=== PATIENT | male | born 1990 | race Hispanic/Latino ===

== ENCOUNTER 2019-12-19 20:19 | Emergency (ER) | payer SELFPAY ==
[2019-12-19] MEDS ORDERED: LIDOCAINE 1% MPF 5 ML VIAL ONE (20:52)
--- NOTE | 2019-12-19 21:19 | ER ---
Nurse's Notes [facility] Name: Josh Greer Age: 29 yrs Sex: Male : 1990 Arrival Date: 12/19/2019 Time: 20:20 Bed 13 Private MD: Diagnosis: Right Middle Finger Paronychia Presentation: 12/18 20:33 Chief complaint: Patient states: "I bight at my nails and for 3 days now I noticed my jd3 middle finger on my right hand start to swell at the tip of it. it doesn't hurt to much, but my family was telling me I could potentially loose my finger if I didn't get it taken care of.". Coronavirus screen: Proceed with normal triage. Ebola Screen: Patient negative for fever greater than or equal to 101.5 degrees Fahrenheit, and additional compatible Ebola Virus Disease symptoms. Initial Sepsis Screen: Does the patient meet any 2 criteria? No. Patient's initial sepsis screen is negative. Does the patient have a suspected source of infection? No. Patient's initial sepsis screen is negative. Risk Assessment: Do you want to hurt yourself or someone else? Patient reports no desire to harm self or others. Onset of symptoms was December 16, 2019. 20:33 Method Of Arrival: Ambulatory jd3 20:33 Acuity: CHAU 3 jd3 Historical: - Allergies: 20:37 No Known Allergies; jd3 - Home Meds: 20:37 None [Active]; jd3 - PMHx: 20:37 None; jd3 - PSHx: 20:37 plate in left arm; left femur taken out; jd3 - Immunization history:: Adult Immunizations up to date. - Social history:: Smoking status: Patient denies any tobacco usage or history of. Screenin:38 Abuse screen: Denies threats or abuse. Nutritional screening: No deficits noted. jd3 Tuberculosis screening: No symptoms or risk factors identified. Fall Risk Ambulatory Aid- None/Bed Rest/Nurse Assist (0 pts). Gait- Normal/Bed Rest/Wheelchair (0 pts) Mental Status- Oriented to own ability (0 pts). Total Gutierrez Fall Scale indicates No Risk (0-24 pts). Assessment: 20:35 General: Appears in no apparent distress. comfortable, Behavior is calm, cooperative, jd3 appropriate for age. Pain: Complains of pain in dorsal aspect of distal phalanx of right middle finger Quality of pain is described as aching. Neuro: Level of Consciousness is awake, alert, obeys commands, Oriented to person, place, time, situation. Cardiovascular: Denies chest pain, Capillary refill < 3 seconds Patient's skin is warm and dry. Respiratory: Airway is patent Respiratory effort is even, unlabored, Respiratory pattern is regular, symmetrical, Denies cough, shortness of breath. GI: No signs and/or symptoms were reported involving the gastrointestinal system. : No signs and/or symptoms were reported regarding the genitourinary system. EENT: No signs and/or symptoms were reported regarding the EENT system. Derm: Skin is intact, Skin is dry, Skin is normal, Skin temperature is warm. Musculoskeletal: Circulation, motion, and sensation intact. Range of motion: intact in all extremities, Swelling present in dorsal aspect of proximal phalanx of right middle finger. 21:20 Reassessment: Patient appears in no apparent distress at this time. Patient and/or jd3 family updated on plan of care and expected duration. Pain level reassessed. Patient is alert, oriented x 3, equal unlabored respirations, skin warm/dry/pink. Vital Signs: 20:37 BP 138 / 98; Pulse 76; Resp 17 S; Temp 98.1(O); Pulse Ox 99% on R/A; Weight 61.23 kg jd3 (R); Height 5 ft. 5 in. (165.10 cm) (R); Pain 1/10; 21:20 BP 133 / 96; Pulse 74; Resp 16 S; Pulse Ox 98% on R/A; jd3 20:37 Body Mass Index 22.46 (61.23 kg, 165.10 cm) jd3 ED Course: 20:20 Patient arrived in ED. cf2 20:27 Jerald Gongora MD is Attending Physician. mh7 20:33 Irving Loya RN is Primary Nurse. jd3 20:36 Triage completed. jd3 20:38 Arm band placed on. jd3 20:38 Patient has correct armband on for positive identification. Bed in low position. Call [facility] light in reach. Side rails up X 1. Pulse ox on. NIBP on. 21:18 Assist provider with I \\T\\ D: of an abscess on right right hand, tip; of the middle jd3 finger Set up I\\T\\D tray. Performed by Jerald Gongora MD Dressing with 4X4s, Patient tolerated well. Patient did not have IV access during this emergency room visit. Administered Medications: 20:53 Drug: Lidocaine (1 %) 1 vials Volume: 5 ml; Route: Infiltration; jd3 21:26 Follow up: Response: No adverse reaction jd3 Outcome: 21:19 Discharge ordered by . [facility] 21:20 Condition: stable jd3 21:26 Discharged to home ambulatory. jd3 21:26 Discharge instructions given to patient, Instructed on discharge instructions, follow up and referral plans. medication usage, Demonstrated understanding of instructions, follow-up care, medications, Prescriptions given X 1. 21:26 Patient left the ED. jd3 Signatures: Irving Loya, RN RN jd3 Loulou Chan cf2 Jerald Gongora MD MD 7 Corrections: (The following items were deleted from the chart) 20:38 20:33 Acuity: CHAU 4 jd3 jd3
--- NOTE | 2019-12-19 21:20 | EDPHYS ---
Physician Documentation [facility] Name: Josh Greer Age: 29 yrs Sex: Male : 1990 Arrival Date: 12/19/2019 Time: 20:20 Bed 13 Private MD: ED Physician Jerald Gongora HPI: 12/18 20:39 This 29 yrs old Male presents to ER via Ambulatory with complaints of Finger mh7 Pain. 20:39 The patient or guardian reports pain, swelling. The complaints affect the right middle mh7 finger. Context: The problem was sustained at an unknown location, resulted from biting nails. 20:40 Onset: The symptoms/episode began/occurred 3 day(s) ago. Modifying factors: The mh7 symptoms are alleviated by nothing, the symptoms are aggravated by nothing. Associated signs and symptoms: Pertinent negatives: cyanosis distally, decreased sensation distally, fever, nausea, numbness distally, tingling distally, vomiting. Severity of symptoms: At their worst the symptoms were mild, earlier today, in the emergency department the symptoms are unchanged. Historical: - Allergies: 20:37 No Known Allergies; jd3 - Home Meds: 20:37 None [Active]; jd3 - PMHx: 20:37 None; jd3 - PSHx: 20:37 plate in left arm; left femur taken out; jd3 - Immunization history:: Adult Immunizations up to date. - Social history:: Smoking status: Patient denies any tobacco usage or history of. ROS: 20:40 Constitutional: Negative for fever, chills, and weight loss, Eyes: Negative for injury, mh7 pain, redness, and discharge, ENT: Negative for injury, pain, and discharge, Neck: Negative for injury, pain, and swelling, Cardiovascular: Negative for chest pain, palpitations, and edema, Respiratory: Negative for shortness of breath, cough, wheezing, and pleuritic chest pain, Abdomen/GI: Negative for abdominal pain, nausea, vomiting, diarrhea, and constipation, Back: Negative for injury and pain, : Negative for injury, bleeding, discharge, and swelling, Skin: Negative for injury, rash, and discoloration, Neuro: Negative for headache, weakness, numbness, tingling, and seizure, Psych: Negative for depression, anxiety, suicide ideation, homicidal ideation, and hallucinations, Allergy/Immunology: Negative for hives, rash, and allergies, Endocrine: Negative for neck swelling, polydipsia, polyuria, polyphagia, and marked weight changes, Hematologic/Lymphatic: Negative for swollen nodes, abnormal bleeding, and unusual bruising. Exam: 20:40 Constitutional: This is a well developed, well nourished patient who is awake, alert, mh7 and in no acute distress. Head/Face: Normocephalic, atraumatic. Neck: Trachea midline, no thyromegaly or masses palpated, and no cervical lymphadenopathy. Supple, full range of motion without nuchal rigidity, or vertebral point tenderness. No Meningismus. Chest/axilla: Normal chest wall appearance and motion. Nontender with no deformity. No lesions are appreciated. Cardiovascular: Regular rate and rhythm with a normal S1 and S2. No gallops, murmurs, or rubs. Normal PMI, no JVD. No pulse deficits. Respiratory: Lungs have equal breath sounds bilaterally, clear to auscultation and percussion. No rales, rhonchi or wheezes noted. No increased work of breathing, no retractions or nasal flaring. Abdomen/GI: Soft, non-tender, with normal bowel sounds. No distension or tympany. No guarding or rebound. No evidence of tenderness throughout. Back: No spinal tenderness. No costovertebral tenderness. Full range of motion. Skin: Warm, dry with normal turgor. Normal color with no rashes, no lesions, and no evidence of cellulitis. 20:40 Neuro: Awake and alert, GCS 15, oriented to person, place, time, and situation. Cranial nerves II-XII grossly intact. Motor strength 5/5 in all extremities. Sensory grossly intact. Cerebellar exam normal. Normal gait. Psych: Awake, alert, with orientation to person, place and time. Behavior, mood, and affect are within normal limits. 20:40 Musculoskeletal/extremity: Extremities: noted in the right middle finger tip nail fold: erythema, swelling, tenderness, ROM: intact in all extremities, Circulation is intact in all extremities. Pulses: are normal with no appreciated deficits, Perfusion: the patient is normally perfused throughout, Perfusion: the extremity is normally perfused throughout, Sensation intact. Compartment Syndrome exam of affected extremity: is normal. no numbness, no tingling, no sensation deficit, no palor, no weak pulses, Joints: All joints appear normal with full range of motion. Vital Signs: 20:37 BP 138 / 98; Pulse 76; Resp 17 S; Temp 98.1(O); Pulse Ox 99% on R/A; Weight 61.23 kg jd3 (R); Height 5 ft. 5 in. (165.10 cm) (R); Pain 1/10; 21:20 BP 133 / 96; Pulse 74; Resp 16 S; Pulse Ox 98% on R/A; jd3 20:37 Body Mass Index 22.46 (61.23 kg, 165.10 cm) jd3 Procedures: 21:15 I \T\ D: Incision and drainage was performed for an abscess of the right middle finger mh7 paronychia Prepped with Betadine, Anesthetized with 4 ml's 1% Lidocaine. Incised with #11 blade. Drained small amount purulent fluid. Dressing: sterile 4x4 gauze, the patient tolerated the procedure well. Nerve block: (digital) of dorsal aspect of proximal phalanx of right middle finger Medication: Lidocaine 1% without epinephrine Amount: 4 mls were injected, Effect: the patient's symptoms are improved, markedly, Set up for procedure. Performed by Jerald Gongora MD Patient tolerated well. MDM: 20:39 Patient medically screened. [facility] 21:15 Differential diagnosis: abrasion, cellulitis, paronychial, felon. Data reviewed: [facility] signs, nurses notes. Data interpreted: Pulse oximetry: on room air is 99 %. Interpretation: normal. Counseling: I had a detailed discussion with the patient and/or guardian regarding: the historical points, exam findings, and any diagnostic results supporting the discharge/admit diagnosis, the need for outpatient follow up, to return to the emergency department if symptoms worsen or persist or if there are any questions or concerns that arise at home. Response to treatment: the patient's symptoms have markedly improved after treatment. 12/18 20:55 Order name: I\T\D Setup; Complete Time: 20:56 j Administered Medications: 20:53 Drug: Lidocaine (1 %) 1 vials Volume: 5 ml; Route: Infiltration; jd3 21:26 Follow up: Response: No adverse reaction j Disposition: 12/19/19 21:19 Discharged to Home. Impression: Right Middle Finger Paronychia. - Condition is Stable. - Discharge Instructions: Paronychia, [id number]. - Prescriptions for Bactrim DS 800- 160 mg Oral Tablet - take 1 tablet by ORAL route every 12 hours for 7 days; 14 tablet. - Medication Reconciliation Form, Thank You Letter, Antibiotic Education, Prescription Opioid Use form. - Follow up: Private Physician; When: 48 Hours; Reason: Worsening of condition, Recheck today's complaints, Re-evaluation by your physician. - Problem is new. - Symptoms have improved. Signatures: Irving Loya RN RN jd3 Jerald Gongora MD MD mh7 Corrections: (The following items were deleted from the chart) 21:26 21:19 12/19/2019 21:19 Discharged to Home. Impression: Right Middle Finger Paronychia. jd3 Condition is Stable. Forms are Medication Reconciliation Form, Thank You Letter, Antibiotic Education, Prescription Opioid Use. Follow up: Private Physician; When: 48 Hours; Reason: Worsening of condition, Recheck today's complaints, Re-evaluation by your physician. Problem is new. Symptoms have improved. mh7
[2019-12-20 08:40] VITALS: TEMP 98.1
[2019-12-20 08:42] VITALS: BP 133/96; O2SAT 98
== END 2019-12-19 21:26 | disposition home or self-care (01) ==
LOC: ER 20:19
PROC: 0H9FXZZ Drainage of Right Hand Skin, External Approach (ICD-10-PCS; principal; 2019-12-19)
DX: L03.011 Cellulitis of right finger (principal)
CPT/HCPCS: 64450; 99284

== ENCOUNTER 2024-05-15 12:36 | Emergency (ER) | payer SELFPAY ==
--- OUTSIDE RECORDS SUMMARY | 2024-05-15 12:38 | XMS REPORT | Continuity of Care Document ---
Author Name Unknown Address [address] [place] [address] [address] [place] [address] [facility] Address [address] [place] [address] [address] [place] [address] Care Team Providers Care Digital Design Engineer Name Role Phone PCP, PATIENT DOES NOT HAVE A Primary Care Physic MIGDALIA Copeland Attending Clinician Unavailable Doctor Unassigned, [place] Attending Clinician U navailADRIAN Padilla Attending Clinician Regina vailable Adrian Mojica DNP Attending Clinician Payers Payer Name Policy Type Policy Number Effective Date Expirati on Date Source [facility] [id number] 2021 00:00:00 Allergies, Adverse Reactions, Alerts Allergy Name Allergy Type Status Severity Reaction(s) Onset Date Inactive Date Treating Clinician Comments Source NO KNOWN ALLERGIE S Drug Class Active [facility] Social History Social Habit Start Date Stop Date Quantity Comments Source Sex Assigned At 1990 00:00:00 1990 00:00:00 [facility] Smoking Status Start Date Stop Date Source Tobacco smoking consumption unknown [facility] Medications Ordered Medication Name Filled Medication Name Start Date Stop Date Current Medication? Ordering Clinician Indication Dosage Frequency Signature (SIG) Comments Components Source methylPREDN ISolone acetate (DEPO-MEDRO L) 80 mg/mL 80 mg, lidocaine 1% (PF) (XYLOCAINE) 6 mL, bupivacaine (preserv free) 0.5% (SENSORCAIN E MPF) 0.5 % (5 mg/mL) 3 mL 10 mL injection 08-19 16:45: 00 08-19 18:07 :00 No [id number] 9109 80mg [facility] methylPREDN ISolone acetate (DEPO-MEDRO L) 80 mg/mL 80 mg, lidocaine 1% (PF) (XYLOCAINE) 6 mL, bupivacaine (preserv free) 0.5% (SENSORCAIN E MPF) 0.5 % (5 mg/mL) 3 mL 10 mL injection 08-19 16:45: 00 08-19 18:07 :00 No [id number] 9109 80mg Intra-sia cular, ONCE, 1 dose, On Thu08/19/22 at 1145, 10 mL [facility] methocarbam oL 750 mg tablet 08-19 00:00: 00 11-18 04:59 :00 No [id number] 9109 750mg Take 1 tablet by mouth every evening for 90 days. [facility] meloxicam 15 mg tablet 08-19 00:00: 00 10-19 04:59 :00 No [id number] 9109 15mg Take 1 tablet by mouth in the morning for 60 days. [facility] ondansetron (ZOFRAN, HYDROCHLORI DE,) 4 mg tablet 12-04 00:00: 00 Yes 4mg Take 1 tablet by mouth every 8 (eight) hours. [facility] Vital Signs Vital Name Observation Time Observation Value Comments S ource Systolic blood pressure 2022-08-19 15:57:00 155 mm[Hg] [facility] Diastolic blood pressure 2022-08-19 15:57:00 99 mm[Hg] [facility] Heart rate 2022-08-19 15:57:00 73 /min [facility] Body temperature 2022-08-19 15:57:00 36.61 Constance [facility] Body height 2022-08-19 15:57:00 165.1 cm [facility] Body weight 2022-08-19 15:57:00 97.932 kg [facility] BMI 2022-08-19 15:57:00 35.93 kg/m2 [facility] Procedures Procedure Date / Time Performed Performing Clinician Source AUTHORIZATION FOR RELEASE OF PHI 2022-09-03 05:01:00 Doctor Unassigned, [place] [facility] XR FOREARM 2 VW LEFT 2022-08-19 16:24:00 Adiran Johnson [facility] XR KNEE 4+ VW LEFT 2022-08-19 16:24:00 Adrian Larios [facility] XR HIPS 2 VW LEFT 2022-08-19 16:23:49 Adrian Ponce [facility] Encounters Start Date/Time End Date/Time Encounter Type Admission Type Attending Clinicians Care Facility Care Department Encounter ID Source 2022-11-06 13:40:00 2022-11-06 13:40:00 Outpatient MIGDALIA MANN [facility] [id number] [facility] 2022-10-09 10:40:00 2022-10-09 10:40:00 Outpatient MIGDALIA MANN [facility] [id number] [facility] 2022-09-03 00:00:00 2022-09-03 00:00:00 Orders Only Doctor Unassigned, [place] [facility] [id number] [id number] [id number] [id number] [facility] 2022-08-19 11:13:39 2022-08-19 23:59:00 Outpatient R ADRIAN SALTER [facility] [id number] [facility] 2022-08-19 11:13:39 2022-08-19 23:59:00 Hospital Encounter Adrian Salter [facility] 1..840.114 350.1.13.10 4.2.7.2.686 [id number] [facility] 2022-08-19 10:40:00 2022-08-19 11:44:11 Office Visit Adrian Salter [facility] [id number] [id number] [id number] [id number] [facility] 2022-08-19 11:00:24 2022-08-19 11:12:00 Hospital Encounter [facility] [id number] 350.1.13.10 4.2.7.2.686 [id number] [facility] 2022-08-19 11:00:00 2022-08-19 11:00:00 Hospital Encounter [facility] [id number] 350.1.13.10 [id number] [id number] [facility] 2022-06-26 09:20:00 2022-06-26 09:20:00 Outpatient R [facility] [id number] [facility] 2022-04-04 16:18:12 2022-04-04 16:18:12 Outpatient [facility] [id number] Garo Miller
[2024-05-15] MEDS ORDERED: ONDANSETRON 4 MG/2 ML VIAL ONE ×2 (13:03→14:16)
[2024-05-15 13:07] LABS: Absolute Monocytes 0.5 K/uL (0.1-1.3); Basophils % 0.3 % (0-1.3); Eosinophils % 0.1 % (0-4.4); Hematocrit 48.4 % (39.6-49.0); Hemoglobin 16.9 g/dL (13.6-17.9); Lymphocytes % 6.6 % (15.3-44.8); MCH 30.9 pg (27.0-35.0); MCHC 34.8 g/dL (32.0-36.0); MCV 88.7 fL (80-100); MPV 8.1 fL (7.6-11.3); Monocytes % 3.1 % (3.3-12.3); Neutrophils % 89.9 % (41.7-73.7); Nucleated Red Blood Cells % 0.2 % (0-0); Platelets 275 thou/uL (152-406); RBC Red Blood Cell Count 5.46 M/uL (4.33-5.43); Red Cell Distribution Width 13.1 % (12.1-15.2)
[2024-05-15 13:20] LABS: Albumin 4.3 g/dL (3.4-5.0); Anion Gap 7.5 mEq/L (5.0-15.0); Bilirubin Total 1.3 mg/dL (0.2-1.0); Globulin 4.3 g/dL (2.3-3.5); Potassium 3.5 mEq/L (3.5-5.1); Protein, Total 8.6 g/dL (6.4-8.2)
[2024-05-15] MEDS ORDERED: METOCLOPRAMIDE 10 MG/2mL INJ ONE (13:21)
[2024-05-15] MEDS ORDERED: NA CHLORIDE 0.9% 100 ML ONE (13:21)
[2024-05-15 13:48] LABS: SARS-CoV-2 Antigen CONTROL BLUE LINE VIS/BG OK; SARS-CoV-2 Antigen Rapid Res Negative (Negative)
[2024-05-15 14:08] LABS: Troponin High Sensitivity 4.3 pg/mL (<58.9)
[2024-05-15] MEDS ORDERED: HALOPERIDOL LACT 5 MG/ML INJ ONE (14:16)
[2024-05-15] MEDS ORDERED: MORPHINE 4 MG/ML SYR ONE (14:16)
[2024-05-15] MEDS ORDERED: NA CHLORIDE 0.9% 1,000 ML ONE (14:17)
--- NOTE | 2024-05-15 14:40 | RAD REPORT ---
EXAMINATION: CT ABDOMEN AND PELVIS WITH CONTRAST CLINICAL INDICATION: Abdominal pain TECHNIQUE: CT abdomen and pelvis was performed, after the administration of 100 cc Isovue-300.. Sagit jose and coronal reconstructions were obtained. One or more of the following dose reduction techniques were used: Automated exposure control, adjustment of the mA and kV according to patient si ze, and iterative reconstruction. Unless otherwise specified, incidental findings do not require dedicated imaging follow-up. [id number]. Oral contrast was not given which limits evaluation of bowel and appendix. COMPARISON: .None FINDINGS: Liver, spleen, pancreas, adrenals and kidneys appear unremarkable No evidence of diverticulitis. Normal appendix. Small to moderate left inguinal hernia contains fat. Small umbilical hernia. Postsurgical changes left femur 1.8 cm calcification musculature anterior compartment left hip likely benign. Mild thickening of the wall of the distal esophagus : IMPRESSION: Mild thickening wall distal esophagus can be secondary to incomplete distention or inflammation
[2024-05-15] MEDS ORDERED: PROMETHAZINE INJ 25 MG/ML AMP ONE (15:25)
--- NOTE | 2024-05-15 15:52 | EDPHYS ---
Physician Documentation [facility] Name: Josh Greer Age: 34 yrs Sex: Male : 1990 Arrival Date: 05/15/2024 Time: 12:36 Bed 7 Private MD: ED Physician Adonis Baker HPI: 05/15 18:02 This 34 yrs old Male presents to ER via Ambulatory with complaints of dr5 Abdominal Pain, Nausea, Vomiting. 18:02 Patient is a 34-year-old male with history of hypertension coming in with excessive dr5 nausea and vomiting that is only relieved by hot showers at home. Patient reports he is a daily marijuana smoker. Patient denies rectal bleeding, diarrhea, chest pain, shortness of breath.. Historical: - Allergies: 12:45 No Known Allergies; cm10 - Home Meds: 12:45 None [Active]; cm10 - PMHx: 12:46 Hypertensive disorder; cm10 - Immunization history:: Adult Immunizations up to date. - Infectious Disease History:: Denies. - Social history:: Smoking status: Patient denies any tobacco usage or history of. ROS: 18:02 Constitutional: as per hpi dr5 Exam: 18:02 Constitutional: This is a well developed, well nourished patient who is awake, alert, dr5 and in no acute distress. Head/Face: Normocephalic, atraumatic. Eyes: Pupils equal round and reactive to light, extra-ocular motions intact. Lids and lashes normal. Conjunctiva and sclera are non-icteric and not injected. Cornea within normal limits. Periorbital areas with no swelling, redness, or edema. ENT: Nares patent. No nasal discharge, no septal abnormalities noted. Tympanic membranes are normal and external auditory canals are clear. Oropharynx with no redness, swelling, or masses, exudates, or evidence of obstruction, uvula midline. Mucous membranes moist. Cardiovascular: Regular rate and rhythm with a normal S1 and S2. Normal PMI, no JVD. No pulse deficits. Respiratory: Lungs have equal breath sounds bilaterally, clear to auscultation. No rales, rhonchi or wheezes noted. No increased work of breathing, no retractions or nasal flaring. Abdomen/GI: Soft, non-tender, non-distended Skin: Warm, dry with normal turgor. Normal color with no rashes, no lesions, and no evidence of cellulitis. Neuro: Awake and alert, GCS 15, oriented to person, place, time, and situation. Cranial nerves II-XII grossly intact. Motor strength 5/5 in all extremities. Sensory grossly intact. Cerebellar exam normal. Normal gait. Vital Signs: 12:44 BP 161 / 109; Pulse 78; Resp 15; Temp 98(O); Pulse Ox 98% on R/A; Weight 83.91 kg; cm10 Height 5 ft. 5 in. ; Pain 10/10; 15:15 BP 150 / 87; Pulse 78; Resp 15; Pulse Ox 98% ; jl7 12:44 Body Mass Index 30.79 (83.91 kg, 165.1 cm) cm10 12:44 Pain Scale: Adult cm10 MDM: 14:00 Medical Screening Exam initiated dr5 18:02 Differential diagnosis: Cannabinoid hyperemesis, electrolyte abnormality, influenza. dr5 Data reviewed: vital signs, nurses notes, lab test result(s). I considered the following discharge prescriptions or medication management in the emergency department Medications were administered in the Emergency Department. See MAR. Care significantly affected by the following chronic conditions: Hypertension. Care significantly affected by the following Social Determinants of Health: Poor access to healthcare and/or lack of insurance, Poor access to transportation, Problems related to employment. Counseling: I had a detailed discussion with the patient and/or guardian regarding the historical points, exam findings, and any diagnostic results supporting the discharge/admit diagnosis, the presence of at least one elevated blood pressure reading (>120/80) during this emergency department visit, lab results, radiology results, the need for outpatient follow up, for definitive care, a family practitioner, to return to the emergency department if symptoms worsen or persist or if there are any questions or concerns that arise at home. Medication response: Haldol, Phenergan, Zofran. Response to treatment: the patient's symptoms have resolved after treatment. ED course: Patient tolerated p.o. after medications. Patient is feeling much better. Will send patient home with Zofran. Recommended hot showers as needed. Recommended to take a break from smoking marijuana every day to help control cannabinoid hyperemesis syndrome. All questions answered labs reviewed with patient and CT scan.. 05/15 12:47 Order name: CBC with Diff cm10 05/15 12:47 Order name: CMP; Complete Time: 14:10 cm10 05/15 12:47 Order name: Lipase; Complete Time: 14:10 cm10 05/15 13:11 Order name: SARS RAPID; Complete Time: 14:00 jl7 05/15 13:11 Order name: Flu; Complete Time: 14:00 jl7 05/15 13:15 Order name: CBC Smear Scan EDMS 05/15 13:46 Order name: Troponin High Sensitivity; Complete Time: 14:10 EDMS 05/15 13:02 Order name: CT Abd/Pelvis - IV Contrast Only; Complete Time: 14:42 bp 05/15 14:03 Order name: EKG; Complete Time: 14:03 dr5 05/15 12:47 Order name: IV Saline Lock; Complete Time: 12:58 cm10 05/15 12:47 Order name: Labs collected and sent; Complete Time: 12:58 cm10 05/15 14:03 Order name: EKG - Nurse/Tech; Complete Time: 14:19 dr5 EC:18 Rate is 73 beats/min. Rhythm is regular. QRS [place] is Normal. MD interval is normal at dr5 136 msec. QRS interval is normal at 82 msec. QT interval is normal at 386 msec. Administered Medications: 13:06 Drug: Ondansetron IVP 4 mg IVP once; over 2 minutes Route: IVP; Site: right antecubital;jl7 13:20 Follow up: Response: No adverse reaction; Nausea unchanged jl7 13:33 Drug: metoCLOPramide IVP 20 mg IVP once; over 15 mins Route: IVP; Site: right jl7 antecubital; 14:00 Follow up: Response: No adverse reaction; Nausea unchanged jl7 14:03 CANCELLED (Patient Refused): haloperidol1 mg IVP once dr5 14:10 Not Given (Do not have in department.): droperidol0.625 mg IVP once dr5 14:20 Drug: morphine IVP or IV 4 mg IVP once over 4 mins Route: IVP; Infused Over: 4 mins; bp Site: right antecubital; 14:40 Follow up: Response: No adverse reaction; Pain is decreased jl7 14:20 Drug: NS 0.9% IV 1000 ml IV at 1000 ml once; to be given as a bolus over 60 minutes bp Route: IV; Rate: 1000 ml; Site: right antecubital; 15:00 Follow up: Response: No adverse reaction; IV Status: Completed infusion; IV Intake: jl7 1000ml 14:20 Drug: Haloperidol IVP 1 mg IVP once Route: IVP; Site: right antecubital; bp 14:30 Follow up: Response: No adverse reaction; Marked relief of symptoms jl7 14:21 Drug: Ondansetron IVP 4 mg IVP once; over 2 minutes Route: IVP; Site: right antecubital;bp 14:30 Follow up: Response: No adverse reaction; Nausea unchanged jl7 15:28 Drug: Promethazine IVP 12.5 mg IVP once Route: IVP; Site: right antecubital; jl7 15:59 Follow up: Response: No adverse reaction; Marked relief of symptoms jl7 Disposition Summary: 05/15/24 15:52 Discharge Ordered Notes: Location: Home dr5 Condition: Stable dr5 Diagnosis - Cannabinosis dr5 Followup: dr5 - With: Emergency Department - When: As needed - Reason: Worsening of condition Followup: dr5 - With: Private Physician - When: 1 - 2 days - Reason: Recheck today's complaints, Continuance of care, Re-evaluation by your physician Discharge Instructions: - Discharge Summary Sheet dr5 - Preventing Marijuana Misuse dr5 Forms: - Medication Reconciliation Form dr5 - Antibiotic Education dr5 - Prescription Opioid Use dr5 - Patient Portal Instructions dr5 - Leadership Thank You Letter dr5 Prescriptions: - Zofran 4 mg Oral Tablet - take 1 tablet ORAL route every 12 hours As needed; 20 tablet; Refills: 0, dr5 Product Selection Permitted Signatures: Dispatcher [employer] EDVero Florence RN RN jl7 Ronni Self RN RN Bessie Arce RN RN cm10 Jb Redman FNP-C EAP SPECIALIST-Cdr5 Corrections: (The following items were deleted from the chart) 12:46 12:45 PMHx: None; cm10 cm10 12:47 12:47 CBC+H.LAB.BRZ ordered. EDMS EDMS 12:47 12:47 COMPREHENSIVE METABOLIC PANEL+C.LAB.BRZ ordered. EDMS EDMS 12:47 12:47 LIPASE+C.LAB.BRZ ordered. EDMS EDMS 13:02 13:02 Abdomen Pelvis W Con+CT.RAD.BRZ ordered. EDMS EDMS 13:48 13:41 LIPASE+C.LAB.BRZ ordered. EDMS EDMS 14:03 14:03 Haloperidol IVP 1 mg IVP once ordered. dr5 dr5 14:11 13:41 Troponin High Sensitivity+C.LAB.BRZ ordered. EDMS EDMS 16:02 12:47 Urinalysis+U.LAB.BRZ ordered. EDMS EDMS
--- NOTE | 2024-05-15 15:52 | ER ---
Nurse's Notes [facility] Name: Josh Greer Age: 34 yrs Sex: Male : 1990 Arrival Date: 05/15/2024 Time: 12:36 Bed 7 Private MD: Diagnosis: Cannabinosis Presentation: 05/15 12:44 Chief complaint: Patient states: ABDOMINAL PAIN, NAUSEA, AND VOMITING ONSET THIS cm10 MORNING. PT STATES THAT THE PAIN WOKE HIM FROM HIS SLEEP. Coronavirus screen: Client denies travel out of the [place] in the last 14 days. Ebola Screen: Patient denies travel to an Ebola-affected area in the 21 days before illness onset. No symptoms or risks identified at this time. Initial Sepsis Screen: Does the patient meet any 2 criteria? No. Patient's initial sepsis screen is negative. Does the patient have a suspected source of infection? No. Patient's initial sepsis screen is negative. Risk Assessment: Do you want to hurt yourself or someone else? Patient reports no desire to harm self or others. Onset of symptoms was May 15, 2024. 12:44 Method Of Arrival: Ambulatory cm10 12:44 Acuity: CHAU 3 cm10 Triage Assessment: 12:46 General: Appears in no apparent distress. uncomfortable, Behavior is cooperative. cm10 Neuro: No deficits noted. Level of Consciousness is awake, alert, obeys commands, Oriented to person, place, time, situation, Appropriate for age. Respiratory: No deficits noted. Airway is patent Respiratory effort is even, unlabored, Respiratory pattern is regular, symmetrical. Historical: - Allergies: 12:45 No Known Allergies; cm10 - Home Meds: 12:45 None [Active]; cm10 - PMHx: 12:46 Hypertensive disorder; cm10 - Immunization history:: Adult Immunizations up to date. - Infectious Disease History:: Denies. - Social history:: Smoking status: Patient denies any tobacco usage or history of. Screenin:58 [facility] ED Fall Risk Assessment (Adult) History of falling in the last 3 months, jl7 including since admission No falls in past 3 months (0 pts) Confusion or Disorientation No (0 pts) Intoxicated or Sedated No (0 pts) Impaired Gait No (0 pts) Mobility Assist Device Used No (0 pt) Altered Elimination No (0 pt) Score/Fall Risk Level 0 - 2 = Low Risk Oriented to surroundings, Maintained a safe environment. Abuse screen: Denies threats or abuse. Denies injuries from another. Nutritional screening: No deficits noted. Tuberculosis screening: No symptoms or risk factors identified. Assessment: 12:58 General: Appears in no apparent distress. uncomfortable, Behavior is calm, cooperative, jl7 appropriate for age. Pain: Complains of pain in abdomen Pain currently is 10 out of 10 on a pain scale. Neuro: Level of Consciousness is awake, alert, obeys commands, Oriented to person, place, time, situation. Cardiovascular: Patient's skin is warm and dry. Respiratory: Airway is patent Respiratory effort is even, unlabored, Respiratory pattern is regular, symmetrical. GI: Abdomen is round Reports nausea, vomiting. Derm: Skin is pink, warm \T\ dry. 12:58 GI: Bowel sounds present X 4 quads. Abd is soft. jl7 13:23 Reassessment: Pt continues to wretch, Dr. Baker notified, VO for 20mg Reglan IV. jl7 Vital Signs: 12:44 BP 161 / 109; Pulse 78; Resp 15; Temp 98(O); Pulse Ox 98% on R/A; Weight 83.91 kg; cm10 Height 5 ft. 5 in. ; Pain 10/10; 15:15 BP 150 / 87; Pulse 78; Resp 15; Pulse Ox 98% ; jl7 12:44 Body Mass Index 30.79 (83.91 kg, 165.1 cm) cm10 12:44 Pain Scale: Adult cm10 ED Course: 12:40 Patient arrived in ED. im 12:45 Triage completed. cm10 12:46 Arm band placed on left wrist. Patient placed in waiting room. cm10 12:50 Vero George, RN is Primary Nurse. jl7 12:58 Patient has correct armband on for positive identification. Provided Education on: use jl7 of call briceño. 12:58 Initial lab(s) drawn, by me, sent to lab. Inserted saline lock: 20 gauge in right jl7 antecubital area, using aseptic technique. Blood collected. Flushed with 10 mL NS. 14:00 Jb Redman FNP-C is PHCP. dr5 14:00 Adonis Baker MD is Attending Physician. dr5 14:18 CT Abd/Pelvis - IV Contrast Only In Process Unspecified. EDMS 14:19 EKG done, by ED staff, reviewed by Adonis Baker MD. em1 16:01 No provider procedures requiring assistance completed. IV discontinued, intact, jl7 bleeding controlled, No redness/swelling at site. Pressure dressing applied. Administered Medications: 13:06 Drug: Ondansetron IVP 4 mg IVP once; over 2 minutes Route: IVP; Site: right antecubital;jl7 13:20 Follow up: Response: No adverse reaction; Nausea unchanged jl7 13:33 Drug: metoCLOPramide IVP 20 mg IVP once; over 15 mins Route: IVP; Site: right jl7 antecubital; 14:00 Follow up: Response: No adverse reaction; Nausea unchanged jl7 14:03 CANCELLED (Patient Refused): haloperidol1 mg IVP once dr5 14:10 Not Given (Do not have in department.): droperidol0.625 mg IVP once dr5 14:20 Drug: morphine IVP or IV 4 mg IVP once over 4 mins Route: IVP; Infused Over: 4 mins; bp Site: right antecubital; 14:40 Follow up: Response: No adverse reaction; Pain is decreased jl7 14:20 Drug: NS 0.9% IV 1000 ml IV at 1000 ml once; to be given as a bolus over 60 minutes bp Route: IV; Rate: 1000 ml; Site: right antecubital; 15:00 Follow up: Response: No adverse reaction; IV Status: Completed infusion; IV Intake: jl7 1000ml 14:20 Drug: Haloperidol IVP 1 mg IVP once Route: IVP; Site: right antecubital; bp 14:30 Follow up: Response: No adverse reaction; Marked relief of symptoms jl7 14:21 Drug: Ondansetron IVP 4 mg IVP once; over 2 minutes Route: IVP; Site: right antecubital;bp 14:30 Follow up: Response: No adverse reaction; Nausea unchanged jl7 15:28 Drug: Promethazine IVP 12.5 mg IVP once Route: IVP; Site: right antecubital; jl7 15:59 Follow up: Response: No adverse reaction; Marked relief of symptoms jl7 Medication: 12:58 VIS not applicable for this client. jl7 Intake: 15:00 IV: 1000ml; Total: 1000ml. jl7 Outcome: 15:52 Discharge ordered by . dave 16:01 Discharged to home ambulatory, jl7 16:01 Condition: stable 16:01 Discharge instructions given to patient, Instructed on discharge instructions, follow up and referral plans. medication usage, Demonstrated understanding of instructions, follow-up care, medications, Prescriptions given X 1, 16:02 Patient left the ED. jl7 Signatures: Dispatcher [employer] David Hooper em1 Vero George RN RN jl7 Ronni Self, RN RN Amita Reid Bessie Mcneill RN RN cm10 Jb Redman, PUBLIC HEALTH ASSISTANT-C PUBLIC HEALTH ASSISTANT-Cdr5 Corrections: (The following items were deleted from the chart) 12:46 12:45 PMHx: None; cm10 cm10
[2024-05-15 16:18] VITALS: TEMP 98; O2SAT 98
[2024-05-15 16:20] VITALS: BP 150/87
[2024-05-15 16:23] LABS: Platelet Estimate ADEQ; White Blood Cell Scan OK (OK)
[2024-05-15 16:24] LABS: Blood Morphology Comment NOT SEEN (NOT SEEN)
--- NOTE | 2024-05-17 12:03 | EKG ---
Test Date: 2024-05-15 Test Time: 14:18:06 Gluing Machine Offbearer: PATTI MEASUREMENT RESULTS: Intervals: Rate: 73 MO: 136 QRSD: 82 QT: 386 QTc: 425 [place]: P: 46 MO: 136 QRS: 36 T: 27 INTERPRETIVE STATEMENTS: Normal sinus rhythm with sinus arrhythmia Normal ECG No previous ECG available for comparison Electronically Signed On 05-17-24 12:01:51 MARKETING OPERATIONS INTERN by Naif Salinas
== END 2024-05-15 16:02 | disposition home or self-care (01) ==
LOC: ER 12:36
DX: J66.2 Cannabinosis (principal); Z11.52 Encounter for screening for COVID-19
CPT/HCPCS: 36415; 74177; 80053; 83690; 84484; 85025; 87804; 87811; 93005; 96361; 96374; 96375; 99284; J1630; J2405; J2550; J2765; J7030; Q9967